=== PATIENT | female | born 1960 | race Caucasian/White ===

== ENCOUNTER → 2023-07-27 | Outpatient (REF) | payer BC, MEDICARE ==
[2023-07-27 14:53] LABS: BASO % 0.4 % (0.0-1.0); HEMATOCRIT 40.5 % (36.0-47.0); HEMOGLOBIN 13.4 g/dl (12.0-15.5); LYMPH # 1.7 10^3/uL (1.5-5.0); LYMPH % 20.9 % (24.0-44.0); MEAN CORPUSCULAR HEMOGLOBIN 28.5 pg (27.0-33.0); MEAN CORPUSCULAR HGB CONC 33.1 g/dl (32.0-36.5); MONO # 0.5 10^3/uL (0.0-0.8); MONO % 6.1 % (2.0-8.0); NEUTROPHILS # 5.7 10^3/uL (1.5-8.5); NEUTROPHILS % 72.3 % (36.0-66.0); PLATELET COUNT, AUTOMATED 396 10^3/uL (150-450); RED BLOOD COUNT 4.71 10^6/uL (4.00-5.40); WHITE BLOOD COUNT 7.9 10^3/uL (4.0-10.0)
[2023-07-27 15:00] LABS: HEMOGLOBIN A1c 4.7 % (4.0-6.0)
[2023-07-27 15:18] LABS: ALBUMIN 4.1 G/DL (3.2-5.2); ALKALINE PHOSPHATASE 97 U/L (46-116); ALT/SGPT 64 U/L (7.0-40); AST/SGOT 41 U/L (<34); BILIRUBIN,TOTAL 0.7 MG/DL (0.3-1.2); BLOOD UREA NITROGEN 14 MG/DL (9-23); CALCIUM LEVEL 9.5 MG/DL (8.3-10.6); CARBON DIOXIDE LEVEL 28 MMOL/L (20-31); CHLORIDE LEVEL 99 MMOL/L (98-107); CHOLESTEROL LEVEL 223 MG/DL (<200); CHOLESTEROL RISK RATIO 2.55 (<5); CREATININE FOR GFR 0.65 MG/DL (0.55-1.30); GLOMERULAR FILTRATION RATE > 60.0 (>45); GLUCOSE, FASTING 56 MG/DL (74-106); HDL CHOLESTEROL 87.4 MG/DL (>40); NON-HDL-C 135.6 MG/DL; POTASSIUM SERUM 5.6 MMOL/L (3.5-5.1); SODIUM LEVEL 131 MMOL/L (136-145); TOTAL PROTEIN 6.7 G/DL (5.7-8.2); TRIGLYCERIDES LEVEL 63 MG/DL (<150)
[2023-07-27 15:20] LABS: TOTAL 25(OH) VITAMIN D 52.9 NG/ML (20.0-100.0)
== END ==
LOC: M LAB REF 13:35
PROVIDERS: ATTEND Nurse Practitioner Family
DX: E66.9 Obesity, unspecified (principal); E55.9 Vitamin D deficiency, unspecified

== ENCOUNTER → 2023-08-18 | Outpatient (REF) | payer BC, MEDICARE ==
[2023-08-18 14:26] LABS: ALBUMIN 3.8 G/DL (3.2-5.2); ALKALINE PHOSPHATASE 91 U/L (46-116); ALT/SGPT 55 U/L (7.0-40); AST/SGOT 54 U/L (<34); BILIRUBIN,TOTAL 0.5 MG/DL (0.3-1.2); BLOOD UREA NITROGEN 14 MG/DL (9-23); CALCIUM LEVEL 9.4 MG/DL (8.3-10.6); CARBON DIOXIDE LEVEL 28 MMOL/L (20-31); CHLORIDE LEVEL 99 MMOL/L (98-107); CREATININE FOR GFR 0.55 MG/DL (0.55-1.30); GLOMERULAR FILTRATION RATE > 60.0 (>45); GLUCOSE, FASTING 81 MG/DL (74-106); POTASSIUM SERUM 5.3 MMOL/L (3.5-5.1); SODIUM LEVEL 131 MMOL/L (136-145); TOTAL PROTEIN 6.1 G/DL (5.7-8.2)
== END ==
LOC: M LAB REF 12:34
PROVIDERS: ATTEND Nurse Practitioner Family
DX: R74.8 Abnormal levels of other serum enzymes (principal)

== ENCOUNTER → 2023-08-31 | Outpatient (REF) | payer BC, MEDICARE ==
[2023-08-31 13:55] LABS: IRON (FE) 62 UG/DL (50-170); TOTAL IRON BINDING CAPACITY 388 UG/DL (250-425)
[2023-08-31 13:58] LABS: FOLATE > 24.0 NG/ML (>5.4); VITAMIN B12 LEVEL 886 PG/ML (211-911)
== END ==
LOC: M LAB REF 12:24
PROVIDERS: ATTEND Nurse Practitioner Family
DX: G25.81 Restless legs syndrome (principal)

== ENCOUNTER → 2023-09-15 | Outpatient (CLI) | payer BC, MEDICARE | LOC: M WHC 07:53 | PROVIDERS: ATTEND Nurse Practitioner Family | DX: R74.8 Abnormal levels of other serum enzymes (principal) ==

== ENCOUNTER → 2023-09-29 | Outpatient (CLI) | payer BC, MEDICARE ==
[2023-09-29 12:26] LABS: BASO % 0.3 % (0.0-1.0); HEMATOCRIT 34.6 % (36.0-47.0); HEMOGLOBIN 11.5 g/dl (12.0-15.5); LYMPH # 1.1 10^3/uL (1.5-5.0); LYMPH % 17.9 % (24.0-44.0); MEAN CORPUSCULAR HEMOGLOBIN 29.3 pg (27.0-33.0); MEAN CORPUSCULAR HGB CONC 33.2 g/dl (32.0-36.5); MEAN CORPUSCULAR VOLUME 88.3 fl (80.0-96.0); MONO # 0.6 10^3/uL (0.0-0.8); MONO % 9.1 % (2.0-8.0); NEUTROPHILS # 4.5 10^3/uL (1.5-8.5); NEUTROPHILS % 72.4 % (36.0-66.0); PLATELET COUNT, AUTOMATED 292 10^3/uL (150-450); RED BLOOD COUNT 3.92 10^6/uL (4.00-5.40); WHITE BLOOD COUNT 6.3 10^3/uL (4.0-10.0)
[2023-09-29 12:33] LABS: ERYTHROCYTE SEDIMENTATION RATE 2 mm/hr (0-30)
[2023-09-29 12:47] LABS: ALBUMIN 3.6 G/DL (3.2-5.2); ALKALINE PHOSPHATASE 103 U/L (46-116); ALT/SGPT 36 U/L (7.0-40); AST/SGOT 32 U/L (<34); BILIRUBIN,TOTAL 0.6 MG/DL (0.3-1.2); BLOOD UREA NITROGEN 9 MG/DL (9-23); CALCIUM LEVEL 9.6 MG/DL (8.3-10.6); CARBON DIOXIDE LEVEL 28 MMOL/L (20-31); CHLORIDE LEVEL 100 MMOL/L (98-107); GLOMERULAR FILTRATION RATE > 60.0 (>45); GLUCOSE, FASTING 77 MG/DL (74-106); POTASSIUM SERUM 4.6 MMOL/L (3.5-5.1); SODIUM LEVEL 129 MMOL/L (136-145)
[2023-09-29 12:50] LABS: FREE T4 2.16 NG/DL (0.89-1.76)
[2023-09-29 12:51] LABS: THYROID STIMULATING HORMONE 0.043 uIU/ML (0.55-4.78)
[2023-09-29 12:54] LABS: FOLATE > 24.00 NG/ML (>5.4); VITAMIN B12 LEVEL 732 PG/ML (211-911)
== END ==
LOC: M PLALAB 09:19
PROVIDERS: ATTEND Psychiatry & Neurology Neurology
DX: E53.8 Deficiency of other specified B group vitamins (principal)

== ENCOUNTER 2024-02-09 06:36 | Day surgery (SDC) | payer BC, MEDICARE ==
[~2024-02-09] VITALS: Ht 154.9 cm; Wt 70.6 kg
[~2024-02-09 06:36] MED LIST: B-12100010 PO; BENZ0.5T2 PO; CHOL50003 PO; FOLI1TAB11 PO; GABA600T4 PO; LAMO100T3 PO; LAMO200T3 PO; LOSA100T46 PO; MELA10CA6 PO; OLAN1TAB16 PO; PROP10TA56 PO; SEMA2.4P SQ; SYNT175T2 PO; THIA100TA PO; TRAZ-257 PO; TRAZ300T2 PO; VITA1TAB35 PO
[2024-02-09] MEDS: NS 1,000 ML IV ONE (07:25)
[2024-02-09] MEDS ORDERED: LIDOCAINE 2% 100MG/5ML SDV (FOR ANES.) As Ordered ONE (07:55)
[2024-02-09] MEDS ORDERED: propofoL 500 MG/50 ML VIAL As Ordered ONE (07:55)
[2024-02-09 08:19] VITALS: TEMP 98.1
[2024-02-09 08:32] VITALS: BP 176/74; O2SAT 99
== END 2024-02-09 08:38 | disposition home or self-care (01) ==
LOC: M OPP 06:36
PROVIDERS: ATTEND Internal Medicine Gastroenterology
DX: Z12.11 Encounter for screening for malignant neoplasm of colon (principal); Z86.010 Personal history of colon polyps; K64.8 Other hemorrhoids; E03.9 Hypothyroidism, unspecified; Z87.891 Personal history of nicotine dependence; Z79.83 Long term (current) use of bisphosphonates; Z79.891 Long term (current) use of opiate analgesic; Z79.899 Other long term (current) drug therapy

== ENCOUNTER → 2024-03-06 | Outpatient (REF) | payer BC, MEDICARE ==
[~2024-03-06] MED LIST changes: +GABA-1490 PO; -GABA600T4 PO
[2024-03-06 14:09] LABS: BASO % 0.5 % (0.0-1.0); EOS % 0.2 % (0.0-3.0); HEMATOCRIT 38.7 % (36.0-47.0); LYMPH # 1.4 10^3/uL (1.5-5.0); MEAN CORPUSCULAR HEMOGLOBIN 28.5 pg (27.0-33.0); MEAN CORPUSCULAR HGB CONC 33.6 g/dl (32.0-36.5); MEAN CORPUSCULAR VOLUME 84.9 fl (80.0-96.0); MONO # 0.6 10^3/uL (0.0-0.8); MONO % 9.4 % (2.0-8.0); NEUTROPHILS # 4.3 10^3/uL (1.5-8.5); NEUTROPHILS % 67.6 % (36.0-66.0); PLATELET COUNT, AUTOMATED 379 10^3/uL (150-450); RED BLOOD COUNT 4.56 10^6/uL (4.00-5.40); WHITE BLOOD COUNT 6.3 10^3/uL (4.0-10.0)
[2024-03-06 14:30] LABS: HEMOGLOBIN A1c 4.6 % (4.0-6.0)
[2024-03-06 14:42] LABS: ALKALINE PHOSPHATASE 109 U/L (46-116); ALT/SGPT 53 U/L (7.0-40); AST/SGOT 40 U/L (<34); BILIRUBIN,TOTAL 0.4 MG/DL (0.3-1.2); BLOOD UREA NITROGEN 10 MG/DL (9-23); CALCIUM LEVEL 9.6 MG/DL (8.3-10.6); CARBON DIOXIDE LEVEL 29 MMOL/L (20-31); CHLORIDE LEVEL 98 MMOL/L (98-107); CHOLESTEROL LEVEL 178 MG/DL (<200); CHOLESTEROL RISK RATIO 2.24 (<5); CREATININE FOR GFR 0.61 MG/DL (0.55-1.30); GLOMERULAR FILTRATION RATE > 60.0 (>45); GLUCOSE, FASTING 76 MG/DL (74-106); HDL CHOLESTEROL 79.3 MG/DL (>40); IRON (FE) 45 UG/DL (50-170); LDL CHOLESTEROL 89.9 MG/DL (<100); MAGNESIUM LEVEL 1.9 MG/DL (1.8-2.4); NON-HDL-C 98.7 MG/DL; PERCENT SATURATION 10.6 % (13.2-45.0); POTASSIUM SERUM 5.3 MMOL/L (3.5-5.1); SODIUM LEVEL 129 MMOL/L (136-145); TOTAL IRON BINDING CAPACITY 425 UG/DL (250-425); TOTAL PROTEIN 6.7 G/DL (5.7-8.2); TRIGLYCERIDES LEVEL 44 MG/DL (<150)
[2024-03-06 14:44] LABS: FERRITIN 11.4 NG/ML (7.3-270.7); FOLATE > 24.0 NG/ML (>5.4); THYROID STIMULATING HORMONE 0.038 uIU/ML (0.55-4.78)
[2024-03-06 14:45] LABS: VITAMIN B12 LEVEL 1512 PG/ML (211-911)
== END ==
LOC: M LAB REF 13:24
PROVIDERS: ATTEND Nurse Practitioner Family
DX: E66.3 Overweight (principal)

== ENCOUNTER → 2024-04-12 | Outpatient (CLI) | payer BC, MEDICARE | LOC: M RAD 07:45 | PROVIDERS: ATTEND Nurse Practitioner Family | DX: K42.9 Umbilical hernia without obstruction or gangrene (principal) ==

== ENCOUNTER 2024-05-02 20:27 | Emergency (ER) | payer BC, MEDICARE ==
[~2024-05-02] VITALS: Ht 157.5 cm; Wt 68.2 kg
[2024-05-02 20:32] VITALS: TEMP 97
[2024-05-02] MEDS ORDERED: AUST6TAB PO (20:40)
[2024-05-02 22:33] LABS: BASO % 0.2 % (0.0-1.0); EOS % 0.1 % (0.0-3.0); HEMATOCRIT 39.1 % (36.0-47.0); HEMOGLOBIN 13.3 g/dl (12.0-15.5); LYMPH # 2.4 10^3/uL (1.5-5.0); MEAN CORPUSCULAR HEMOGLOBIN 29.1 pg (27.0-33.0); MEAN CORPUSCULAR VOLUME 85.6 fl (80.0-96.0); MONO % 7.9 % (2.0-8.0); NEUTROPHILS # 9.6 10^3/uL (1.5-8.5); NEUTROPHILS % 73.6 % (36.0-66.0); PLATELET COUNT, AUTOMATED 368 10^3/uL (150-450); RED BLOOD COUNT 4.57 10^6/uL (4.00-5.40); WHITE BLOOD COUNT 13.1 10^3/uL (4.0-10.0)
[2024-05-02 22:58] LABS: BLOOD UREA NITROGEN 16 MG/DL (9-23); CALCIUM LEVEL 10.3 MG/DL (8.3-10.6); CARBON DIOXIDE LEVEL 25 MMOL/L (20-31); CHLORIDE LEVEL 104 MMOL/L (98-107); CREATININE FOR GFR 0.54 MG/DL (0.55-1.30); GLOMERULAR FILTRATION RATE > 60.0 (>45); GLUCOSE, FASTING 95 MG/DL (74-106); MAGNESIUM LEVEL 2.1 MG/DL (1.8-2.4); POTASSIUM SERUM 4.5 MMOL/L (3.5-5.1); SODIUM LEVEL 137 MMOL/L (136-145)
[2024-05-03] MEDS: LORazepam 2 MG/ML 1ML VIAL IM STA (00:36)
[2024-05-03] MEDS ORDERED: ATIV2TAB PO (01:10)
[2024-05-03] MEDS: LORazepam 2 MG TAB PO STA (01:18)
[2024-05-03 01:30] VITALS: BP 120/57; O2SAT 96
== END 2024-05-03 01:38 | disposition home or self-care (01) ==
LOC: M ED 20:27
DX: G24.01 Drug induced subacute dyskinesia (principal); E11.9 Type 2 diabetes mellitus without complications; I10 Essential (primary) hypertension; E03.9 Hypothyroidism, unspecified; F41.9 Anxiety disorder, unspecified; F31.9 Bipolar disorder, unspecified; Z79.84 Long term (current) use of oral hypoglycemic drugs; Z79.811 Long term (current) use of aromatase inhibitors; Z79.899 Other long term (current) drug therapy
CPT/HCPCS: 80048; 83735; 85025; 96372; 99284; J2060

== ENCOUNTER → 2024-05-03 | Outpatient (REF) | payer BC, MEDICARE ==
[~2024-05-03] MED LIST changes: +ATIV2TAB PO; +AUST6TAB PO
[2024-05-03 14:40] LABS: PERCENT SATURATION 15.7 % (13.2-45.0)
[2024-05-03 14:41] LABS: FREE T4 1.73 NG/DL (0.89-1.76)
[2024-05-03 14:42] LABS: THYROID STIMULATING HORMONE 0.264 uIU/ML (0.55-4.78)
== END ==
LOC: M LAB REF 13:34
PROVIDERS: ATTEND Nurse Practitioner Family
DX: Z98.84 Bariatric surgery status (principal); E03.9 Hypothyroidism, unspecified

== ENCOUNTER → 2024-07-24 | Outpatient (REF) | payer BC, MEDICARE | LOC: M LAB REF 12:12 | PROVIDERS: ATTEND Nurse Practitioner Family | DX: E03.9 Hypothyroidism, unspecified (principal) ==

== ENCOUNTER → 2024-10-09 | Outpatient (REF) | payer BC, MEDICARE | LOC: M LAB REF 12:01 | PROVIDERS: ATTEND Nurse Practitioner Family | DX: E03.9 Hypothyroidism, unspecified (principal) ==

== ENCOUNTER → 2025-03-19 | Outpatient (REF) | payer BC, MEDICARE ==
[2025-03-19 15:06] LABS: BASO # 0.0 10^3/uL (0.0-0.2); BASO % 1.0 % (0.0-1.0); EOS # 0.0 10^3/uL (0.0-0.5); EOS % 0.5 % (0.0-3.0); LYMPH # 0.9 10^3/uL (1.5-5.0); LYMPH % 21.7 % (24.0-44.0); MONO # 0.4 10^3/uL (0.0-0.8); MONO % 8.4 % (2.0-8.0); NEUTROPHILS # 2.8 10^3/uL (1.5-8.5); NEUTROPHILS % 67.9 % (36.0-66.0); PLATELET COUNT, AUTOMATED 375 10^3/uL (150-450)
[2025-03-19 15:49] LABS: FREE T4 1.68 NG/DL (0.89-1.76)
[2025-03-19 15:50] LABS: ALT/SGPT 34 U/L (7.0-40); AST/SGOT 34 U/L (<34); CALCIUM LEVEL 9.2 MG/DL (8.3-10.6); CARBON DIOXIDE LEVEL 29 MMOL/L (20-31); CHLORIDE LEVEL 87 MMOL/L (98-107); CHOLESTEROL LEVEL 208 MG/DL (<200); CHOLESTEROL RISK RATIO 2.32 (<5); CREATININE FOR GFR 0.69 MG/DL (0.55-1.30); GLOMERULAR FILTRATION RATE > 90.0 (>45); IRON (FE) 84 UG/DL (50-170); LDL CHOLESTEROL 108.0 MG/DL (<100); NON-HDL-C 118.4 MG/DL; PERCENT SATURATION 26.4 % (13.2-45.0); POTASSIUM SERUM 3.8 MMOL/L (3.5-5.1); SODIUM LEVEL 123 MMOL/L (136-145); TRIGLYCERIDES LEVEL 52 MG/DL (<150)
[2025-03-19 19:48] LABS: ESTIMATED AVERAGE GLUCOSE 85.0 MG/DL (60-110)
== END ==
LOC: M LAB REF 12:27
PROVIDERS: ATTEND Physician Assistant
DX: I10 Essential (primary) hypertension (principal); E03.9 Hypothyroidism, unspecified; E78.5 Hyperlipidemia, unspecified; D50.9 Iron deficiency anemia, unspecified

== ENCOUNTER → 2025-03-20 | Outpatient (REF) | payer BC, MEDICARE ==
[2025-03-20 13:22] LABS: APPEARANCE, URINE HAZY (CLEAR); BACTERIA, URINE AUTO 3+ (NEGATIVE); BILIRUBIN, URINE AUTO NEGATIVE (NEGATIVE); BLOOD, URINE BLOOD NEGATIVE (NEGATIVE); GLUCOSE, URINE (UA) AUTO NEGATIVE (NEGATIVE); KETONE, URINE AUTO NEGATIVE (NEGATIVE); LEUKOCYTE ESTERASE, URINE AUTO 3+ (NEGATIVE); NITRITE, URINE AUTO NEGATIVE (NEGATIVE); PROTEIN, URINE AUTO NEGATIVE (NEGATIVE); RBC, URINE AUTO 1 /HPF (0-3); SPECIFIC GRAVITY URINE AUTO 1.010 (1.002-1.035); SQUAMOUS EPITHELIAL CELL UR AU 1 /HPF (0-6); UROBILINOGEN, URINE AUTO 4.0 mg/dL (0.0-2.0); WBC, URINE AUTO 87 /HPF (0-3)
[2025-03-20 14:40] LABS: CREATININE, URINE 80.9 MG/DL
[2025-03-20 14:41] LABS: MALB URINE SIEMENS < 3.0 MG/L
== END ==
LOC: M LAB REF 12:00
PROVIDERS: ATTEND Physician Assistant
DX: I10 Essential (primary) hypertension (principal)

== ENCOUNTER 2025-04-10 09:40 | Emergency (ER) | payer BC, MEDICARE ==
[~2025-04-10] VITALS: Ht 157.5 cm; Wt 68.5 kg
[2025-04-10 09:50] VITALS: TEMP 98.4
[2025-04-10] MEDS ORDERED: BENZ1TAB5 PO (12:07)
[2025-04-10] MEDS ORDERED: LEVO125T4 PO (12:10)
[2025-04-10] MEDS ORDERED: PROP20TA72 PO (12:12)
[2025-04-10] MEDS ORDERED: PRIM50TA6 PO (12:17)
[2025-04-10] MEDS ORDERED: PRIM125T PO (12:17)
[2025-04-10] MEDS ORDERED: CLON0.5T2 PO (12:18)
[2025-04-10] MEDS ORDERED: DULO1CAP6 PO (12:20)
[2025-04-10] MEDS ORDERED: DULO1CAP4 PO (12:20)
[2025-04-10] MEDS ORDERED: DOCU100C16 PO (12:21)
[2025-04-10] MEDS ORDERED: FERR325T19 PO (12:21)
[2025-04-10] MEDS ORDERED: LORA-1041 PO (12:21)
[2025-04-10] MEDS ORDERED: HOME MED LIST COMPLETE! XX SCH (12:25)
[2025-04-10 13:00] VITALS: BP 144/67; O2SAT 99
[2025-04-10] MEDS: KETOROLAC 30 MG/ML 1 ML VIAL IV ONE (13:07)
[2025-04-10] MEDS ORDERED: HYDR-3713 PO (13:10)
[2025-04-10] MEDS ORDERED: KETO-204 PO (13:10)
== END 2025-04-10 13:52 | disposition home or self-care (01) ==
LOC: EDBD 09:40 → M ED 09:40
DX: S20.212A Contusion of left front wall of thorax, initial encounter (principal); Y92.9 Unspecified place or not applicable; Y93.9 Activity, unspecified; Y99.9 Unspecified external cause status; W01.0XXA Fall on same level from slipping, tripping and stumbling without subsequent striking against object, initial encounter; R91.8 Other nonspecific abnormal finding of lung field; J32.1 Chronic frontal sinusitis; E11.9 Type 2 diabetes mellitus without complications; I10 Essential (primary) hypertension; Z79.1 Long term (current) use of non-steroidal anti-inflammatories (NSAID); Z79.899 Other long term (current) drug therapy; Z79.4 Long term (current) use of insulin
CPT/HCPCS: 70450; 71101; 71250; 72125; 80047; 96374; 96375; 99284; J1885; J3010

== ENCOUNTER → 2025-06-14 | Outpatient (REF) | payer BC, MEDICARE ==
[~2025-06-14] MED LIST changes: +BENZ1TAB5 PO; +CLON0.5T2 PO; +DOCU100C16 PO; +DULO1CAP4 PO; +DULO1CAP6 PO; +FERR325T19 PO; +HYDR-3713 PO; +KETO-204 PO; +LEVO125T4 PO; +LORA-1041 PO; +PRIM125T PO; +PRIM50TA6 PO; +PROP20TA72 PO
[2025-06-14 16:18] LABS: CALCIUM LEVEL 9.0 MG/DL (8.3-10.6); CARBON DIOXIDE LEVEL 28 MMOL/L (20-31); CHLORIDE LEVEL 94 MMOL/L (98-107); CREATININE FOR GFR 0.65 MG/DL (0.55-1.30); GLOMERULAR FILTRATION RATE > 90.0 (>45); POTASSIUM SERUM 4.0 MMOL/L (3.5-5.1); SODIUM LEVEL 129 MMOL/L (136-145)
[2025-06-14 16:21] LABS: FREE T4 1.79 NG/DL (0.89-1.76)
== END ==
LOC: M LAB REF 15:55
PROVIDERS: ATTEND Physician Assistant
DX: E03.9 Hypothyroidism, unspecified (principal); E87.1 Hypo-osmolality and hyponatremia